=== PATIENT | female | born 1960 | race Caucasian/White ===

== ENCOUNTER 2018-04-24 12:17 | Outpatient (CLI) | payer MEDICAID | END 2018-04-24 12:18 | disposition short-term general hospital (02) | LOC: EMS 12:17 | PROVIDERS: ATTEND Surgery | DX: R07.89 Other chest pain (principal); R11.0 Nausea; R06.02 Shortness of breath; F17.210 Nicotine dependence, cigarettes, uncomplicated | CPT/HCPCS: A0425; A0427; A0999 ==